=== PATIENT | male | born 1970 | race Caucasian/White ===

== ENCOUNTER 2025-05-08 23:21 | Emergency (ER) | payer SELFPAY ==
[2025-05-08 23:28] VITALS: BP 133/98
--- NOTE | 2025-05-09 00:14 | ED.GENMED ---
History of Present Illness
General
Chief Complaint: Skin Surface Trauma
Source: patient
Exam Limitations: none
Time Seen by Provider: 05/08/25 23:39
History of Present Illness
History of Present Illness:
55yo right hand dominant male presenting for evaluation of a right ring finger laceration that was sustained a few hours ago. He works at [employer] and excellently cut himself on a piece of metal. He was unable to control the bleeding which prompted
him to come to the ED. No paresthesias. Unknown last Tdap.
Phy Exam
General Physical Exam
General Presentation: well appearing and no apparent distress
General Skin: warm and dry
General Habitus: normal
General Mental: alert
ENT Exam
ENT Exam: normocephalic
Neurological Exam
Neurological Exam: alert
Skin Exam
Skin Exam: warm/dry and other (R ring finger: Laceration noted to distal fingertip with small skin flat. Active venous oozing. No involvement of nailbed. ROM of DIP and PIP joints intact.)
Psychiatric Exam
Psychiatric Exam: normal mood/affect
Course
Orders/Labs/Results
Orders:
Orders
05/09/25 00:16
Tetanus/Diphth/Acelpertussis [Adacel] 0.5 ml .ROUTE .STK-MED ONE
Tetanus/Diphth/Acelpertussis [Adacel] 0.5 ml IM .ONCE ONE
Vital Signs
Initial and Last Documented VS:
Initial Vital Signs
Temp Pulse Resp BP Pulse Ox
98.7 F 95 20 133/98 99
05/08/25 23:28 05/08/25 23:28 05/08/25 23:28 05/08/25 23:28 05/08/25 23:28
Last Documented Vital Signs
Temp Pulse Resp BP Pulse Ox
98.7 F 93 20 133/98 99
05/08/25 23:28 05/09/25 00:31 05/09/25 00:31 05/08/25 23:28 05/09/25 00:31
Procedures
Laceration Closure
Right Fourth Finger:
Status of Wound: clean
Size of Wound in cm: 1
Description of Wound Edges: flap-poorly vascularized (1cm curved laceration with skin flap to distal fingertip)
Preparation: cleaned with saline
Type of Closure: single layer closure
Skin Closure Material: 5-0 nylon
Number of sutures: 3
MDM/Problems Addressed
Differential Diagnosis Includes:
55yoM here with a R ring finger laceration. Small curved laceration noted with skin flap. Active venous oozing noted. No evidence of neurovascular injury. Wound with continued bleeding after direct pressure and 3 sutures placed. Minimal oozing
remaining and Surgicel dressing placed. Tdap updated. Home wound care discussed. Patient advised to have sutures removed in 10 days. ED return precautions reviewed including uncontrolled bleeding or signs of infection.
*Pulse Oximetry
SaO2: 99
Oxygen Mode of Delivery: Room air
Patient hypoxic: no
*Critical Care Note
Total Time (30-74mins, 75-104mins- exclusive of procedures): Not Applicable
ED Attending Note
-
Portions of this chart may have been created with voice recognition software.� Occasional wrong word or��sound alike� substitutions may have occurred due to the inherent limitations of voice recognition software.
Discharge Plan
Departure
Patient Disposition: Home (Routine Discharge)
Date of Disposition: 05/09/25
Time of Disposition: 00:24
Patient with high blood pressure during this ER visit?: No
Discharge Problem:
Laceration of right ring finger
Instructions: Laceration Repair With Stitches (DC)
Referrals:
Blake Mancilla MD [Family Provider, Internal Medicine]
Activity Restrictions/Additional Instructions:
Keep wound clean and dry. Sutures should be removed in 10-14 days.
Return to the ER with any uncontrolled bleeding or signs of infection.
Interventions
Interventions:
*Risk Screen - Suicide Last Done: 05/08/25 23:28
*General Assessment Last Done: 05/08/25 23:28
*Neglect/Abuse Screening Last Done: 05/08/25 23:28
*ED COVID-19 Vaccine History Last Done: 05/08/25 23:32
*ED Influenza Vaccine History Last Done: 05/08/25 23:28
[facility] Fall Risk Assessment Tool Last Done: 05/08/25 23:46
*Nursing Disposition Last Done: 05/09/25 00:31
ED-Skin Assessment Last Done: 05/08/25 23:46
Discharge Date and Time
Discharge Date/Time: 05/09/25 00:32
Print Language: TRINIDADIAN
[2025-05-09] MEDS: ADACEL 0.5 ML IM (00:18)
== END 2025-05-09 00:32 | disposition home or self-care (01) ==
LOC: EMR 23:21
PROVIDERS: EMERGENCY PHYSICIAN Emergency Medicine; FAMILY PHYSICIAN Internal Medicine
DX: S61.214A Laceration without foreign body of right ring finger without damage to nail, initial encounter (principal); W26.8XXA Contact with other sharp object(s), not elsewhere classified, initial encounter; Z23 Encounter for immunization
CPT/HCPCS: 99282; 12001; 90471; 90715

== ENCOUNTER 2025-05-25 15:58 | Emergency (ER) | payer SELFPAY ==
[2025-05-25 16:00] VITALS: BP 142/86
--- NOTE | 2025-05-25 16:48 | ED.GENMED ---
History of Present Illness
General
Chief Complaint: Wound Check/Suture Removal
Source: patient
Time Seen by Provider: 05/25/25 16:32
History of Present Illness
History of Present Illness:
55-year-old male presents to the emergency room for evaluation of a wound to his right ring finger. Patient had stitches placed on May 09. He has been keeping it covered with a bandage and a glove. He has not been using antibiotic ointment.
Phy Exam
Physical Exam
Physical Exam:
General: Awake, alert, no distress
Right hand: Ring finger has a wound with 3 sutures. It appears to have been a flap type laceration and the flap is now necrotic. Sutures removed without difficulty. Remainder of the finger looks normal. No signs of infection. Range of motion
intact.
Course
Vital Signs
Initial and Last Documented VS:
Initial Vital Signs
Temp Pulse Resp BP Pulse Ox
97.6 F 61 20 142/86 99
05/25/25 16:00 05/25/25 16:00 05/25/25 16:00 05/25/25 16:00 05/25/25 16:00
Last Documented Vital Signs
Temp Pulse Resp BP Pulse Ox
97.6 F 61 20 142/86 99
05/25/25 16:00 05/25/25 16:00 05/25/25 16:00 05/25/25 16:00 05/25/25 16:51
MDM/Problems Addressed
Differential Diagnosis Includes:
Suture removal, wound infection
MDM/Problems Addressed:
Sutures removed without difficulty. Recommend antibiotic ointment, keep it clean and dry aside from showers.
*Pulse Oximetry
SaO2: 99
Oxygen Mode of Delivery: Room air
Patient hypoxic: no
*Critical Care Note
Total Time (30-74mins, 75-104mins- exclusive of procedures): Not Applicable
ED Attending Note
-
Portions of this chart may have been created with voice recognition software.� Occasional wrong word or��sound alike� substitutions may have occurred due to the inherent limitations of voice recognition software.
Discharge Plan
Departure
Patient Disposition: Home (Routine Discharge)
Date of Disposition: 05/25/25
Time of Disposition: 16:48
Patient with high blood pressure during this ER visit?: Yes
Condition: Good
Discharge Problem:
Wound of cheek, Encounter for removal of sutures
Instructions: Stitches Removal
Interventions
Interventions:
*General Assessment Last Done: 05/25/25 16:00
*Neglect/Abuse Screening Last Done: 05/25/25 16:00
*Risk Screen - Suicide (C-SSRS) Last Done: 05/25/25 16:00
*Nursing Disposition Last Done: 05/25/25 16:55
ED-Skin Assessment Last Done: 05/25/25 16:55
Discharge Date and Time
Discharge Date/Time: 05/25/25 17:18
Print Language: NORWEGI[place]
== END 2025-05-25 17:18 | disposition home or self-care (01) ==
LOC: EMR 15:58
PROVIDERS: EMERGENCY PHYSICIAN Emergency Medicine; FAMILY PHYSICIAN Internal Medicine
DX: Z48.02 Encounter for removal of sutures (principal)
CPT/HCPCS: 99281